=== PATIENT | male | born 1950 | race Caucasian/White ===

== ENCOUNTER 2018-04-21 08:27 | Day surgery (SDC) | payer MEDICARE ==
[2018-04-17 09:48] VITALS: BMI 26.7
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
[~2018-04-21 08:27] MED LIST: LACTATED RINGERS 1,000 ML IV SCH; LIDOCAINE 1% 20 ML VIAL (10MG/ML) FOR IV START INTRADERMA PRN
[2018-04-21 08:55] VITALS: TEMP 98.7
[2018-04-21] MEDS ORDERED: PROPOFOL 10 MG/ML 20 ML VIAL IV ONE (09:06)
--- NOTE | 2018-04-21 09:30 | P.PCN ---
Date of Procedure: 04/21/18 Description of Procedure: PREOPERATIVE DIAGNOSIS: Personal history of colon polyps Colonoscopy surveillance POSTOPERATIVE DIAGNOSIS: Personal history of colon polyps Colonoscopy surveillance Multiple tubular adenomas throughout the colon. Internal hemorrhoids, grade 1 Arteriovenous malformation, proximal transverse colon Scattered diverticulosis OPERATION: Colonoscopy to the ileocecal valve and appendiceal orifice. Colonoscopy with multiple hot snare polypectomies Colonoscopy with ablation lesion of the cecum SURGEON: Tamra Glover MD. ANESTHESIA: MAC. INDICATIONS: The patient is a 67-year-old male who presents with history of colon polyps, last colonoscopy 3 years ago. Benefits and risks were described and informed consent was obtained. DESCRIPTION OF PROCEDURE: The patient had undergone Gatorade, MiraLAX and Dulcolax prep. He had been brought into the operating room and laid in the left lateral decubitus position. Prostate was unremarkable. After adequate intravenous sedation, the rectum was examined with 2% lidocaine jelly. No external hemorrhoids were encountered. The rectal tone was within normal limits. No lesions were palpated in the rectal vault. An Olympus colonoscope was advanced until the ileocecal valve and appendiceal orifice were clearly viewed. The prep was fair with visualization of the mucosal folds. The scope was removed with visualization of each mucosal fold. Scattered diverticulosis was encountered. Multiple colonic polyps were found and hot snare polypectomy. Lesion along the cecum of 2 mm was ablated. A small arteriovenous malformation without bleeding was identified along proximal transverse colon. No evidence of focal colitis was found. Retroflexion of the scope demonstrated grade 1 internal hemorrhoids without active bleeding or inflammation. The colon was desufflated. The patient had tolerated the procedure well. Withdrawal time was over 6 minutes. FINDINGS: Internal hemorrhoids, grade 1 No external hemorrhoids A small arteriovenous malformation without bleeding was identified along proximal transverse colon. Scattered diverticulosis along the sigmoid colon Removal of 3 polyps: - Snare polypectomy 60 cm from the anal verge, 4 mm tubulovillous adenoma polyp. - Snare polypectomy ascending colon, 7 mm villous adenoma polyp. - Snare polypectomy cecum, 4 mm flat villous adenoma polyp. Ablation of lesion at cecum, 3 mm No focal colitis. RECOMMENDATIONS: Given severity of tubular adenomas, recommend repeat colonoscopy 3 years, 2020 Plan - Discharge Summary New Discharge Prescriptions: No Action Rosuvastatin Calcium [Crestor] 5 mg PO HS Tamsulosin HCl [Flomax] 0.4 mg PO HS Lisinopril-Hctz 20-25 mg [Zestoretic 20-25] 1 each PO HS Aspirin [Adult Low Dose Aspirin EC] 81 mg PO DAILY Discharge Medication List Aspirin [Adult Low Dose Aspirin EC] 81 mg PO DAILY 04/17/18 [History] Lisinopril-Hctz 20-25 mg [Zestoretic 20-25] 1 each PO HS 04/17/18 [History] Rosuvastatin Calcium [Crestor] 5 mg PO HS 04/17/18 [History] Tamsulosin HCl [Flomax] 0.4 mg PO HS 04/17/18 [History] Follow up Appointment(s)/Referral(s): Tamra Glover MD [STAFF PHYSICIAN] - As Needed Patient Instructions/Handouts: Colorectal Polyps (IP), Diverticulosis Diet (GEN ), Diverticulosis (GEN), *Surgery [facility] - (Anesthesia) Endoscopy Discharge Instructions Activity/Diet/Wound Care/Special Instructions: Repeat colonoscopy 3 years, April 2021 Discharge Disposition: HOME SELF-CARE
[2018-04-21 09:33] VITALS: RESP 16
[2018-04-21 10:01] VITALS: BP 122/74; PULSE 82
== END 2018-04-21 10:15 | disposition home or self-care (01) ==
LOC: ORWHC2ENDO 08:27
PROVIDERS: ATTEND Surgery Plastic and Reconstructive Surgery
DX: Z12.11 Encounter for screening for malignant neoplasm of colon (principal); D12.2 Benign neoplasm of ascending colon; D12.0 Benign neoplasm of cecum; K63.5 Polyp of colon; K57.30 Diverticulosis of large intestine without perforation or abscess without bleeding; K64.0 First degree hemorrhoids; Q27.33 Arteriovenous malformation of digestive system vessel; Z86.010 Personal history of colon polyps; I10 Essential (primary) hypertension; E78.5 Hyperlipidemia, unspecified; N42.9 Disorder of prostate, unspecified; Z79.82 Long term (current) use of aspirin; Z79.899 Other long term (current) drug therapy; Z86.12 Personal history of poliomyelitis
CPT/HCPCS: 88305; 45385; J2704